=== PATIENT | female | born 1980 | race Caucasian/White ===

== ENCOUNTER 2022-03-15 02:44 | Inpatient (IN) | payer MEDICAID ==
[~2022-03-15] VITALS: Ht 170.2 cm; Wt 72.6 kg
[~2022-03-15 02:44] MED LIST: ACET325T PO; AMIN30LI2 PO; ANT30 PO; ASA81 PO; ASCO500T20 PO; DOCU-144 PO; GLIP10TA21 PO; HYDR-3917 PO; INSU100V7 SUBCUT; INSU100V9 SQ; LACT1CAP69 PO; MAGN400T10 PO; METF-518 PO; MULT-1117 PO; ONDA4TAB5 PO; PHEN1LIQ MC; VANC1PLA9 IV; ZINC50TA69 PO; ZOLP5TAB2 PO
[2022-03-15 03:02] VITALS: BP_SYST 95
[2022-03-15 04:11] LABS: BASOPHILS # (AUTO) 0.1 K/uL (0.0-0.2); BASOPHILS % (AUTO) 0.7 % (0.0-2.0); EOSINOPHILS # (AUTO) 0.4 K/uL (0.0-0.4); HEMATOCRIT 28.5 % (36-48); LYMPHOCYTES # (AUTO) 1.8 K/uL (1.0-5.5); LYMPHOCYTES % (AUTO) 19.6 % (20.5-51.5); MEAN CORPUSCULAR HEMOGLOBIN 25 pg (27-31); MEAN CORPUSCULAR HGB CONC 32 % (32-36); MEAN CORPUSCULAR VOLUME 80 fL (79.0-98.0); MONOCYTES # (AUTO) 0.6 K/uL (0.0-1.0); MONOCYTES % (AUTO) 6.6 % (1.7-9.3); NEUTROPHILS # (AUTO) 6.2 K/uL (1.8-7.7); NEUTROPHILS % (AUTO) 69.1 % (40.0-70.0); PLATELET COUNT (AUTO) 428 K/uL (130-430); RED BLOOD CELL COUNT(AUTO) 3.58 MIL/uL (4.2-6.2); RED CELL DISTRIBUTION WIDTH 16.8 % (9.0-15.0)
[2022-03-15 04:28] LABS: CALCIUM 8.4 mg/dL (8.4-11.0); CREATININE 0.56 mg/dL (0.55-1.30)
[2022-03-15 04:30] LABS: ALBUMIN 1.8 g/dL (3.4-4.8); TOTAL BILIRUBIN 0.2 mg/dL (0.0-1.0)
[2022-03-15] MEDS ORDERED: NACL 0.9% 1,000 ML IV ONE (04:30)
[2022-03-15 04:59] LABS: ERYTHROCYTE SEDIMENTATION RATE 88 MM/HR (0-20)
[2022-03-15] MEDS ORDERED: ERTA1VIA3 IJ (05:44)
[2022-03-15] MEDS ORDERED: DIPH25CA83 PO (05:44)
[2022-03-15] MEDS ORDERED: ASPI-1393 PO (05:44)
[2022-03-15] MEDS ORDERED: VANC1.5P12 IV (05:44)
[2022-03-15 08:43] LABS: PROTHROMBIN TIME 10.4 SECS (9.5-12.5)
[2022-03-15 11:58] VITALS: BP_SYST 93
[2022-03-15 12:00] VITALS: BP_SYST 100
[2022-03-15] MEDS ORDERED: ONDANSETRON 4 MG ODT TAB PO PRN (13:15)
[2022-03-15] MEDS ORDERED: DOCUSATE SODIUM 100 MG CAPSULE PO PRN (13:15)
[2022-03-15] MEDS ORDERED: ACETAMINOPHEN 325 MG TABLET PO SCH (13:15)
[2022-03-15] MEDS ORDERED: MAG-AL HYDROX/SIMETH 30 ML UDC PO PRN (13:15)
[2022-03-15] MEDS ORDERED: NALOXONE HCL 0.4 MG/ML AMP (NARCAN) IVP PRN (13:15)
[2022-03-15] MEDS ORDERED: DIPHENHYDRAMINE HCL 25 MG CAPSULE PO PRN (13:15)
[2022-03-15] MEDS ORDERED: INSULIN REGULAR, HUMAN 100 UNITS/ML, 3 ML VIAL SUBCUT SCH (13:15)
[2022-03-15 16:00] VITALS: BP_SYST 101
[2022-03-15] MEDS ORDERED: BALSAM PERU/CASTOR OIL 56.7 GM OINT...G. TP ONE (16:00)
[2022-03-15] MEDS: glipiZIDE XL 5 MG TAB ( GLUCOTROL XL) PO SCH (17:00)
[2022-03-15 20:00] VITALS: BP_SYST 98
[2022-03-15] MEDS: HYDROcodone/ACETAMIN 5-325 MG TAB (NORCO/ VICODIN) PO PRN (21:12)
[2022-03-16] VITALS (7 sets, daily range): BP systolic 90–132
[2022-03-16] MEDS ORDERED: INSULIN REGULAR, HUMAN 100 UNITS/ML, 3 ML VIAL (humuLIN R) SUBCUT PRN (02:45)
[2022-03-16] MEDS: glipiZIDE XL 5 MG TAB ( GLUCOTROL XL) PO SCH ×2 (05:54→16:44)
[2022-03-16] MEDS ORDERED: BALSAM PERU/CASTOR OIL 56.7 GM OINT...G. TP SCH (09:00)
[2022-03-16] MEDS ORDERED: ASPIRIN 81 MG TABLET(ECOTRIN) PO SCH (09:00)
[2022-03-16] MEDS: HYDROcodone/ACETAMIN 5-325 MG TAB (NORCO/ VICODIN) PO PRN (11:54)
== END 2022-03-16 19:53 | DRG 206 ==
LOC: SED 02:44 → SMU 08:00
PROVIDERS: ADMIT Internal Medicine; ATTEND Internal Medicine
PROC: 02HV33Z Insertion of Infusion Device into Superior Vena Cava, Percutaneous Approach (ICD-10-PCS; principal; 2022-03-16)
PROC: B548ZZA Ultrasonography of Superior Vena Cava, Guidance (ICD-10-PCS; 2022-03-16)
DX: T82.514A Breakdown (mechanical) of infusion catheter, initial encounter (principal); E43 Unspecified severe protein-calorie malnutrition; E11.69 Type 2 diabetes mellitus with other specified complication; M86.671 Other chronic osteomyelitis, right ankle and foot; Z20.822 Contact with and (suspected) exposure to COVID-19; Y83.8 Other surgical procedures as the cause of abnormal reaction of the patient, or of later complication, without mention of misadventure at the time of the procedure; Z79.82 Long term (current) use of aspirin; Z79.891 Long term (current) use of opiate analgesic; Z79.899 Other long term (current) drug therapy; Y92.89 Other specified places as the place of occurrence of the external cause
CPT/HCPCS: 36415; 71045; 80053; 85025; 85610-TC; 85651-TC; 85730-TC; 87081; 96360; 96361; 99285; J1815

== ENCOUNTER 2022-10-13 09:49 | Emergency (ER) | payer MEDICAID ==
[~2022-10-13] VITALS: Ht 165.1 cm; Wt 72.6 kg
[~2022-10-13 09:49] MED LIST changes: -AMIN30LI2 PO; -ASA81 PO; -ASCO500T20 PO; +ASPI-1393 PO; +DIPH25CA83 PO; +ERTA1VIA3 IJ; -INSU100V9 SQ; -MAGN400T10 PO; -MULT-1117 PO; -PHEN1LIQ MC; +VANC1.5P12 IV; -VANC1PLA9 IV; -ZINC50TA69 PO; -ZOLP5TAB2 PO
[2022-10-13 09:52] VITALS: BP_SYST 101; PULSE 91; RESP 18; TEMP 98; O2SAT 97
[2022-10-13 10:26] LABS: BASOPHILS # (AUTO) 0.1 K/uL (0.0-0.2); BASOPHILS % (AUTO) 0.5 % (0.0-2.0); EOSINOPHILS # (AUTO) 0.2 K/uL (0.0-0.4); EOSINOPHILS % (AUTO) 1.3 % (0.0-4.0); HEMATOCRIT 36.4 % (36-48); HEMOGLOBIN 11.7 g/dL (12.0-16.0); LYMPHOCYTES # (AUTO) 2.7 K/uL (1.0-5.5); MEAN CORPUSCULAR HEMOGLOBIN 26 pg (27-31); MEAN CORPUSCULAR HGB CONC 32 % (32-36); MEAN CORPUSCULAR VOLUME 82 fL (79.0-98.0); MONOCYTES # (AUTO) 1.1 K/uL (0.0-1.0); MONOCYTES % (AUTO) 7.2 % (1.7-9.3); NEUTROPHILS # (AUTO) 10.9 K/uL (1.8-7.7); PLATELET COUNT (AUTO) 376 K/uL (130-430); RED BLOOD CELL COUNT(AUTO) 4.44 MIL/uL (4.2-6.2); RED CELL DISTRIBUTION WIDTH 15.9 % (9.0-15.0); WHITE BLOOD COUNT (AUTO) 14.9 K/uL (4.8-10.8)
[2022-10-13] MEDS ORDERED: ACETAMINOPHEN 500 MG TABLET PO ONE (10:30)
[2022-10-13] MEDS ORDERED: ONDANSETRON HCL 4 MG/2 ML VIAL IVP ONE (10:30)
[2022-10-13 10:44] LABS: CALCIUM 8.8 mg/dL (8.4-11.0); CREATININE 1.17 mg/dL (0.55-1.30); POTASSIUM 3.8 mmol/L (3.5-5.1)
[2022-10-13 10:50] LABS: ALBUMIN 3.3 g/dL (3.4-4.8); TOTAL BILIRUBIN 0.5 mg/dL (0.0-1.0); TOTAL PROTEIN, SERUM 7.9 g/dL (6.4-8.3)
[2022-10-13] MEDS ORDERED: iohexoL 350 mgI/mL, 100 ML INFUS..BTL IV ONE (12:19)
[2022-10-13] MEDS ORDERED: NACL 0.9% 1,000 ML IV ONE (12:30)
[2022-10-13 16:07] LABS: CLARITY/URINE HAZY (CLEAR); COLOR,URINE YELLOW (YELLOW)
[2022-10-13 16:08] LABS: BILIRUBIN,URINE NEGATIVE (NEGATIVE); BLOOD, URINE 1+ (NEGATIVE); GLUCOSE,URINE NEGATIVE (NEGATIVE); KETONES,URINE TRACE (NEGATIVE); LEUKOCYTE ESTERASE ,URINE 1+ (NEGATIVE); NITRITE, URINE NEGATIVE (NEGATIVE); PROTEIN URINE 2+ (NEGATIVE)
[2022-10-13 16:22] LABS: BACTERIA,URINE MODERATE /HPF (None Seen); RBC,URINE 0-3 /HPF (0-3); WBC,URINE 20-50 /HPF (0-3)
[2022-10-13 16:23] LABS: MUCUS,URINE None Seen /LPF (None Seen)
[2022-10-13] MEDS ORDERED: CEPH250C PO (16:30)
[2022-10-13] MEDS ORDERED: cephALEXin 500 MG CAPSULE PO ONE (18:30)
[2022-10-13 19:45] VITALS: BP_SYST 95; PULSE 87; RESP 20; TEMP 97.7; O2SAT 98
== END 2022-10-13 19:45 | disposition home or self-care (01) ==
LOC: SED 09:49
DX: N39.0 Urinary tract infection, site not specified (principal); R10.13 Epigastric pain; K86.1 Other chronic pancreatitis; R11.0 Nausea; E11.9 Type 2 diabetes mellitus without complications; Z79.4 Long term (current) use of insulin; Z79.899 Other long term (current) drug therapy
CPT/HCPCS: 99285; 74177; 96374; 96361; 80053; 81000; 83690; 85025; 87086; 84484; 36415; 93005; 76376; 81025; Q9967; J2405; J7030